=== PATIENT | female | born 1955 | race Caucasian/White ===

== ENCOUNTER 2017-06-23 07:28 | Day surgery (SDC) | payer BC, OTHER ==
[~2017-06-23] VITALS: Ht 167.6 cm; Wt 96.6 kg
[~2017-06-23 07:28] MED LIST: ASPIRIN ADULT L81 M2 PO; HYDROCHLOROT25 MG PO; HYZAAR1 TAB PO; MEDDOSEPAK PO; METOPROL TAR100 MG PO; METOPROL TAR25 M1 PO; SINGULAIR10 MG PO; XYZAL5 MG PO; ZYRTEC10 MG PO
[2017-06-23 10:52] VITALS: BP 154/63
== END 2017-06-23 11:12 | disposition home or self-care (01) | DRG 951 ==
LOC: ENDO 07:28
PROVIDERS: ATTEND Surgery
PROC: 0DJD8ZZ Inspection of Lower Intestinal Tract, Via Natural or Artificial Opening Endoscopic (ICD-10-PCS; principal; 2017-06-23)
DX: Z12.11 Encounter for screening for malignant neoplasm of colon (principal); I10 Essential (primary) hypertension; K57.30 Diverticulosis of large intestine without perforation or abscess without bleeding

== ENCOUNTER 2017-11-29 10:02 | Emergency (ER) | payer BC, OTHER ==
[~2017-11-29] VITALS: Ht 167.6 cm; Wt 107.2 kg
[2017-11-29] MEDS ORDERED: EC-NAPROSYN500 MG PO (11:02)
[2017-11-29 11:30] VITALS: BP 147/86
== END 2017-11-29 11:15 | disposition home or self-care (01) | DRG 554 ==
LOC: ED 10:02
DX: M19.072 Primary osteoarthritis, left ankle and foot (principal); M25.572 Pain in left ankle and joints of left foot

== ENCOUNTER 2019-04-12 21:30 | Emergency (ER) | payer BC, OTHER ==
[~2019-04-12] VITALS: Ht 167.6 cm; Wt 105.5 kg
[~2019-04-12 21:30] MED LIST changes: +EC-NAPROSYN500 MG PO
[2019-04-12] MEDS ORDERED: TORADOL PO (23:38)
[2019-04-12 23:45] VITALS: BP 150/73
== END 2019-04-12 23:45 | disposition home or self-care (01) | DRG 605 ==
LOC: ED 21:30
DX: S80.01XA Contusion of right knee, initial encounter (principal); S00.531A Contusion of lip, initial encounter; S00.511A Abrasion of lip, initial encounter; W01.0XXA Fall on same level from slipping, tripping and stumbling without subsequent striking against object, initial encounter; Y93.01 Activity, walking, marching and hiking; Y92.009 Unspecified place in unspecified non-institutional (private) residence as the place of occurrence of the external cause